=== PATIENT | male | born 1985 | race Caucasian/White ===

== ENCOUNTER 2016-05-01 17:49 | Emergency (ER) | payer OTHER ==
[2016-05-01 18:56] VITALS: BP 138/75
--- NOTE | 2016-05-01 19:04 | UC ---
Skin Complaint HPI - History of Current Complaint Chief Complaint: UCRas Time Seen by Provider: 05/01/16 18:57 Stated Complaint: RASH FACE/ CALF Onset/Duration: Sudden Onset, Lasting Days - 2, Still Present Timing: Constant Current Severity: Mild Location: Discrete - right cheek, right forearm and right calf Character: Pruritus - on right forearm, Redness, Painful Aggravating: Touch Alleviating: Nothing Associated Signs & Symptoms: Positive: Rash Similar Episode/Dx as: Shingles - Allergy/Home Medications Allergies/Adverse Reactions: Allergies Allergy/AdvReac Type Severity Reaction Status Date / Time No Known Allergies Allergy Verified 05/01/16 18:56 Review of Systems Constitutional: Fatigue Skin: Rash All Other Systems Reviewed And Are Negative: Yes PMH/Surg Hx/FS Hx/Imm Hx Previously Healthy: Yes Endocrine History Of: Denies: Diabetes Cardiovascular History Of: Denies: Hypertension Respiratory History Of: Denies: Asthma - Surgical History Surgical History: None - Family History Known Family History: Positive: Cardiac Disease, Hypertension, Diabetes - Social History Occupation: Employed Full-time Lives: With Family Alcohol Use: Rare Substance Use Type: None Smoking Status (MU): Never Smoked Tobacco Type: Smokeless Tobacco Amount Used/How Often: 10YRS Have You Smoked in the Last Year: No When Did the Patient Quit Smoking/Using Tobacco: 2 YRS AGO Physical Exam Triage Information Reviewed: Yes Appearance: Well-Appearing, No Pain Distress, Well-Nourished Vital Signs: Initial Vital Signs Temp 98.7 F 05/01/16 18:52 Pulse 75 05/01/16 18:52 Resp 14 05/01/16 18:52 BP 138/75 05/01/16 18:52 Pulse Ox 99 05/01/16 18:52 Vital Signs Reviewed: Yes Eyes: Positive: Conjunctiva Clear Neck exam: Normal Respiratory Exam: Normal Cardiovascular Exam: Normal Musculoskeletal Exam: Normal Neurological Exam: Normal Neurological: Positive: Other: - hypersensitive to pinprick below the right leg rash. Psychological Exam: Normal Skin: Positive: rashes - right cheek slightly red, but no rash, Right forearm scaling papule and erythematous patch grouped rash on the right anteriomedial dale. Course/Dx - Differential Diagnoses - Skin Complaint Differential Diagnoses: Contact Dermatitis, Eczema, Varicella Zoster - Diagnoses Provider Diagnoses: atopic dermatitis. zoster, shingles right lower leg. Discharge - Discharge Plan Condition: Stable Disposition: HOME Prescriptions: Triamcinolone 0.1% CREAM(NF) [Kenalog Cream 0.1%(NF)] 1 applic TOPICAL BID #80 gm ValACYclovir (*) [Valtrex 1 GM(*)] 1 gm PO TID #21 tab Patient Education Materials: Shingles (ED), Valacyclovir (By mouth), Dermatitis (ED), Triamcinolone (On the skin)
[2016-05-01] MEDS ORDERED: Acyclovir* 200 MG CAP PO ONE (19:13)
== END 2016-05-01 19:34 | disposition home or self-care (01) ==
LOC: UCCORT 17:49
DX: L20.9 Atopic dermatitis, unspecified (principal); B02.9 Zoster without complications; Z87.891 Personal history of nicotine dependence
CPT/HCPCS: 99212; A9270-GY; G0463

== ENCOUNTER 2016-05-17 09:40 | Emergency (ER) | payer OTHER ==
[2016-05-17 11:50] VITALS: BP 133/68
--- NOTE | 2016-05-17 12:02 | UC ---
Complaint Male HPI - HPI Summary HPI Summary: 31 YO MALE WITH DYSURIA (MILD) PARTNER DIAGNOSED WITH TRICH NO D/C NO TESTICULAR PAIN NO HX STD - History of Current Complaint Chief Complaint: UCSTDScreening Stated Complaint: PERSONAL Time Seen by Provider: 05/17/16 11:43 Hx Obtained From: Patient Onset/Duration: Gradual Onset, Lasting Days Timing: Constant, Lasting Seconds Severity Initially: Mild Severity Currently: None Pain Intensity: 0 Pain Scale Used: 0-10 Numeric Location: Penis Character: Burning Aggravating Factor(s): Voiding Alleviating Factor(s): Nothing Associated Signs And Symptoms: Positive: Negative - Allergies/Home Medications Allergies/Adverse Reactions: Allergies Allergy/AdvReac Type Severity Reaction Status Date / Time No Known Allergies Allergy Verified 05/01/16 18:56 PMH/Surg Hx/FS Hx/Imm Hx Previously Healthy: Yes Endocrine History Of: Denies: Diabetes Cardiovascular History Of: Denies: Hypertension Respiratory History Of: Denies: Asthma - Surgical History Surgical History: None - Family History Known Family History: Positive: Cardiac Disease, Hypertension, Diabetes - Social History Alcohol Use: Rare Substance Use Type: None Smoking Status (MU): Never Smoked Tobacco Type: Smokeless Tobacco Amount Used/How Often: 10YRS Have You Smoked in the Last Year: No When Did the Patient Quit Smoking/Using Tobacco: 2 YRS AGO Review of Systems Constitutional: Negative Skin: Negative Eyes: Negative ENT: Negative Respiratory: Negative Cardiovascular: Negative Gastrointestinal: Negative Genitourinary: Dysuria - MILD Motor: Negative Neurovascular: Negative Musculoskeletal: Negative Neurological: Negative Psychological: Negative All Other Systems Reviewed And Are Negative: Yes Physical Exam Triage Information Reviewed: Yes Appearance: Well-Appearing, No Pain Distress, Well-Nourished Vital Signs: Initial Vital Signs Temp 98.4 F 05/17/16 11:45 Pulse 63 05/17/16 11:45 Resp 16 05/17/16 11:45 BP 133/68 05/17/16 11:45 Pulse Ox 100 05/17/16 11:45 Vital Signs Reviewed: Yes Eyes: Positive: Conjunctiva Clear ENT: Positive: Hearing grossly normal. Negative: Nasal congestion, Nasal drainage, TMs normal, Trismus, Muffled/hoarse voice Neck exam: Normal Neck: Positive: Supple, Nontender Respiratory Exam: Normal Respiratory: Positive: Lungs clear, Normal breath sounds, No respiratory distress Cardiovascular: Positive: RRR, No Murmur Abdomen Description: Positive: Nontender, No Organomegaly, Soft, Other: - PENIS WITHHOUT LESIONS, NO URETHRAL D/C Musculoskeletal: Positive: ROM Intact, No Edema Neurological Exam: Normal Neurological: Positive: Alert Psychological Exam: Normal Complaint Male Course/Dx - Differential Dx/Diagnosis Provider Diagnoses: TRICHOMONAS EXPOSURE Discharge - Discharge Plan Condition: Stable Disposition: HOME Prescriptions: Metronidazole [Flagyl 500 MG TAB] 2,000 mg PO ONCE #4 tab Patient Education Materials: Trichomoniasis (ED) Referrals: CLAUDETTE Smalls [Primary Care Provider] - Additional Instructions: OTHER TEST PENDING
== END 2016-05-17 12:11 | disposition home or self-care (01) ==
LOC: UCCORT 09:40
DX: Z20.2 Contact with and (suspected) exposure to infections with a predominantly sexual mode of transmission (principal); Z87.891 Personal history of nicotine dependence
CPT/HCPCS: 87491; 87591; 87661; 99212; G0463

== ENCOUNTER 2016-09-09 17:12 | Emergency (ER) | payer OTHER ==
[2016-09-09 18:02] VITALS: BP 135/83
--- NOTE | 2016-09-09 18:57 | UC ---
Throat Pain/Nasal Martinez HPI - HPI Summary HPI Summary: TEN DAYS OF FACIAL PRESSURE COUGH AND FEVER. WARMTH AND PRESSURE ON FOREHEAD AND RIGHT SIDE OF FACE - History of Current Complaint Chief Complaint: UCGeneralIllness Stated Complaint: FORMAN/SINUS PRESSURE Time Seen by Provider: 09/09/16 17:42 Hx Obtained From: Patient Onset/Duration: Gradual Onset, Lasting Weeks, Still Present Severity: Moderate Pain Intensity: 0 Pain Scale Used: 0-10 Numeric Cough: Nonproductive Associated Signs & Symptoms: Positive: Sinus Discomfort, Nasal Discharge, Fever - Epiglottits Risk Factors Epiglottis Risk Factors: Negative - Allergies/Home Medications Allergies/Adverse Reactions: Allergies Allergy/AdvReac Type Severity Reaction Status Date / Time No Known Allergies Allergy Verified 09/09/16 18:02 PMH/Surg Hx/FS Hx/Imm Hx Previously Healthy: Yes Endocrine History Of: Denies: Diabetes Cardiovascular History Of: Denies: Hypertension Respiratory History Of: Denies: Asthma - Surgical History Surgical History: None - Family History Known Family History: Positive: Cardiac Disease, Hypertension, Diabetes - Social History Occupation: Employed Full-time Lives: With Family Alcohol Use: Rare Substance Use Type: None Smoking Status (MU): Never Smoked Tobacco Type: Smokeless Tobacco Amount Used/How Often: 10YRS Have You Smoked in the Last Year: No When Did the Patient Quit Smoking/Using Tobacco: 2 YRS AGO - Immunization History Most Recent Influenza Vaccination: [id number] Review of Systems Constitutional: Negative Skin: Negative Eyes: Negative ENT: Nasal Discharge Respiratory: Cough Cardiovascular: Negative Gastrointestinal: Negative Genitourinary: Negative Motor: Negative Neurovascular: Negative Musculoskeletal: Negative Neurological: Negative Psychological: Negative All Other Systems Reviewed And Are Negative: Yes Physical Exam Triage Information Reviewed: Yes Appearance: Well-Appearing, No Pain Distress, Well-Nourished Vital Signs: Initial Vital Signs Temp 100.2 F 09/09/16 17:57 Pulse 80 09/09/16 17:57 Resp 15 09/09/16 17:57 BP 135/83 09/09/16 17:57 Pulse Ox 100 09/09/16 17:57 Vital Signs Reviewed: Yes Eye Exam: Normal ENT: Positive: Hearing grossly normal, Pharynx normal, Nasal congestion, TM bulging, TM dull, Other: - RIGHT MAXILLARY TENDERNESS AND FRONTAL SINUS TENDERNESS Dental Exam: Normal Neck exam: Normal Neck: Positive: Supple, Nontender, No Lymphadenopathy Respiratory Exam: Normal Respiratory: Positive: Chest non-tender, Lungs clear, Normal breath sounds, No respiratory distress, No accessory muscle use Cardiovascular Exam: Normal Cardiovascular: Positive: RRR, No Murmur, Pulses Normal Abdominal Exam: Normal Musculoskeletal Exam: Normal Neurological Exam: Normal Psychological Exam: Normal Skin Exam: Normal Throat Pain/Nasal Course/Dx - Differential Dx/Diagnosis Differential Diagnosis/HQI/PQRI: Otitis Media, Pharyngitis, Sinusitis, Tonsillitis, URI Provider Diagnoses: SINUSITIS Discharge - Discharge Plan Condition: Stable Disposition: HOME Prescriptions: Amoxicillin/Clavulanate TAB* [Augmentin TAB 875*] 875 mg PO BID #20 tab Fluticasone NASAL SPRAY 50MCG* [Flonase NASAL SPRAY 50MCG*] 2 spray BOTH NARES DAILY #1 btl Patient Education Materials: Sinusitis (ED) Referrals: CLAUDETTE Smalls [Primary Care Provider] -
== END 2016-09-09 18:16 | disposition home or self-care (01) ==
LOC: UCCORT 17:12
DX: J32.9 Chronic sinusitis, unspecified (principal)
CPT/HCPCS: 99212; G0463

== ENCOUNTER 2017-03-15 10:42 | Emergency (ER) | payer BC, OTHER ==
[2017-03-15 10:57] VITALS: BP 147/91
[2017-03-15] MEDS ORDERED: Azithromycin TAB* 250 MG PO ONE (11:37)
--- NOTE | 2017-03-15 11:48 | UC ---
Complaint Male HPI - HPI Summary HPI Summary: 32 YO MALE REPORTS EXPOSURE TO CHLAMYDIA HE IS ASYMPTOMATIC - History of Current Complaint Chief Complaint: UCGeneralIllness Stated Complaint: PERSONAL Time Seen by Provider: 03/15/17 11:30 Hx Obtained From: Patient Onset/Duration: Other - na Pain Intensity: 0 Pain Scale Used: 0-10 Numeric Location: Other - na Aggravating Factor(s): Other - na Alleviating Factor(s): Other - na Associated Signs And Symptoms: Positive: Negative - Allergies/Home Medications Allergies/Adverse Reactions: Allergies Allergy/AdvReac Type Severity Reaction Status Date / Time No Known Allergies Allergy Verified 03/15/17 10:53 Home Medications: Home Medications NK [No Home Medications Reported] 03/15/17 [History Confirmed 03/15/17] PMH/Surg Hx/FS Hx/Imm Hx Previously Healthy: Yes - Surgical History Surgical History: None - Family History Known Family History: Positive: Cardiac Disease, Hypertension, Diabetes - Social History Alcohol Use: Occasionally Substance Use Type: None Smoking Status (MU): Never Smoked Tobacco Type: Smokeless Tobacco Amount Used/How Often: 10YRS Have You Smoked in the Last Year: No When Did the Patient Quit Smoking/Using Tobacco: 2 YRS AGO - Immunization History Most Recent Influenza Vaccination: 2017 Review of Systems Constitutional: Negative Skin: Negative Eyes: Negative ENT: Negative Respiratory: Negative Cardiovascular: Negative Gastrointestinal: Negative Genitourinary: Negative Motor: Negative Neurovascular: Negative Musculoskeletal: Negative Neurological: Negative Psychological: Negative Is Patient Immunocompromised?: No All Other Systems Reviewed And Are Negative: Yes Physical Exam Triage Information Reviewed: Yes Appearance: Well-Appearing, No Pain Distress, Well-Nourished Vital Signs: Initial Vital Signs Temp 98 F 03/15/17 10:53 Pulse 83 03/15/17 10:53 Resp 16 03/15/17 10:53 BP 147/91 03/15/17 10:53 Pulse Ox 100 03/15/17 10:53 Vital Signs Reviewed: Yes Eyes: Positive: Conjunctiva Clear ENT: Positive: Hearing grossly normal, Uvula midline. Negative: Nasal congestion, Nasal drainage, Trismus, Muffled voice, Hoarse voice, Dental tenderness Dental Exam: Normal Neck: Positive: Supple, Nontender, No Lymphadenopathy Respiratory: Positive: Lungs clear, Normal breath sounds, No respiratory distress Cardiovascular: Positive: RRR, No Murmur Abdomen Description: Positive: Nontender, No Organomegaly, Soft, Other: - NO URETHRAL D/C OR PENILE LESIONS, TESTICLES BOTH DESCENDED AND NOT PAINFUL Neurological: Positive: Alert, Fatigued Skin Exam: Normal Complaint Male Course/Dx - Differential Dx/Diagnosis Provider Diagnoses: EXPOSURE TO CHLAMYDIA Discharge - Discharge Plan Condition: Stable Disposition: HOME Patient Education Materials: Sexually Transmitted Diseases (ED) Referrals: CLAUDETTE Smalls [Primary Care Provider] - Additional Instructions: TESTS PENDING
== END 2017-03-15 11:49 | disposition home or self-care (01) ==
LOC: UCCORT 10:42
DX: Z20.2 Contact with and (suspected) exposure to infections with a predominantly sexual mode of transmission (principal)
CPT/HCPCS: 87491; 87591; 99212; A9270-GY; G0463